=== PATIENT | male | born 1980 | race Two or more races ===

== ENCOUNTER → 2020-05-27 14:13 | Outpatient (BNVA) | payer OTHER, SELFPAY | PROVIDERS: Visit Provider Internal Medicine | DX: S29.011A Strain of muscle and tendon of front wall of thorax, initial encounter (principal); W18.30XA Fall on same level, unspecified, initial encounter | CPT/HCPCS: 71101; 99203 ==

== ENCOUNTER → 2020-05-31 13:58 | Outpatient (BNVA) | payer OTHER, SELFPAY | PROVIDERS: Visit Provider Internal Medicine | DX: R93.7 Abnormal findings on diagnostic imaging of other parts of musculoskeletal system (principal); M24.812 Other specific joint derangements of left shoulder, not elsewhere classified; S20.212A Contusion of left front wall of thorax, initial encounter; W18.30XA Fall on same level, unspecified, initial encounter | CPT/HCPCS: 73030; 99214 ==

== ENCOUNTER → 2020-06-06 13:47 | Outpatient (BNVA) | payer OTHER, SELFPAY | PROVIDERS: PCP Internal Medicine; Visit Provider Internal Medicine | DX: S20.219D Contusion of unspecified front wall of thorax, subsequent encounter (principal); X58.XXXD Exposure to other specified factors, subsequent encounter; M24.812 Other specific joint derangements of left shoulder, not elsewhere classified | CPT/HCPCS: 99213 ==

== ENCOUNTER → 2020-06-13 11:01 | Outpatient (BNVA) | payer OTHER, SELFPAY | PROVIDERS: PCP Internal Medicine; Visit Provider Internal Medicine | DX: S20.212D Contusion of left front wall of thorax, subsequent encounter (principal); X58.XXXD Exposure to other specified factors, subsequent encounter; M24.812 Other specific joint derangements of left shoulder, not elsewhere classified | CPT/HCPCS: 99213 ==

== ENCOUNTER 2020-06-14 15:08 | Outpatient (REF) | payer OTHER, SELFPAY ==
[2020-06-14 16:03] LABS: Hematocrit 48.7 % (42-52); Hemoglobin 15.9 g/dl (14.0-18.0); Mean Corpuscular HGB Conc 32.6 g/dl (31.0-36.0); Mean Corpuscular Hemoglobin 30.7 pg (27.0-33.0); Mean Platelet Volume 9.5 fL (9.4-12.4); Platelet Count 293 X10*3/uL (160-400); Red Blood Count 5.18 X10*6/uL (4.60-5.80); Red Cell Distribution Width 12.6 % (11.0-16.0); White Blood Count 9.6 X10*3/uL (4.8-10.8)
[2020-06-14 16:19] LABS: Anion Gap 10 (12-20); Bilirubin Direct 0.2 mg/dL (0.0-0.5); Bilirubin Total 0.4 mg/dL (0.0-1.0); Blood Urea Nitrogen 14 mg/dL (9-16); Calcium 9.7 mg/dL (8.4-10.2); Carbon Dioxide 28 mmol/L (22-29); Chloride 108 mmol/L (96-108); Estimated Glomerular Filt Rate > 60; Glucose Random 97 mg/dL (60-115); Potassium 4.3 mmol/L (3.3-5.1); Sodium 142 mmol/L (135-145)
[2020-06-14 16:20] LABS: Alanine Aminotransferase 28 U/L (0-40); Albumin Level 4.6 g/dL (3.5-5.0); Alkaline Phosphatase 80 U/L (39-117); Aspartate Amino Transferase 23 U/L (5-37); C Reactive Protein 0.23 mg/dL (< or = 0.50); Cholesterol 173 mg/dL; HDL Cholesterol 33 mg/dL; LDL Cholesterol Calculated 103 mg/dl; Total Protein 7.2 g/dL (6.5-8.0); Triglycerides 185 mg/dL
[2020-06-14 16:41] LABS: Thyroid Stimulating Hormone 1.15 uIU/mL (0.32-4.0)
[2020-06-14 16:53] LABS: Folate 8.6 ng/mL (> or = 4.0); Vitamin B12 510 pg/mL (200-900)
[2020-06-14 16:54] LABS: Erythrocyte Sedimentation Rate 1 MM/HR (0-15)
[2020-06-19 11:21] LABS: Vitamin D 25-OH, D2 <4 ng/mL; Vitamin D 25-OH, D3 11 ng/mL; Vitamin D 25-OH, Total 11 ng/mL (30-100)
== END 2020-06-14 15:09 | disposition home or self-care (01) ==
LOC: HO.LAB 15:08
PROVIDERS: PCP Internal Medicine; Visit Provider Internal Medicine
DX: M89.9 Disorder of bone, unspecified (principal)
CPT/HCPCS: 36415; 80048; 80061; 80076; 82306; 82607; 82746; 84443; 85027; 85652; 86140

== ENCOUNTER → 2020-06-17 12:57 | Outpatient (BNVA) | payer OTHER, SELFPAY | PROVIDERS: PCP Internal Medicine; Visit Provider Internal Medicine | DX: S46.912D Strain of unspecified muscle, fascia and tendon at shoulder and upper arm level, left arm, subsequent encounter (principal); W18.30XD Fall on same level, unspecified, subsequent encounter; R07.89 Other chest pain | CPT/HCPCS: 99213 ==

== ENCOUNTER 2020-06-23 12:00 | Outpatient (RCR) | payer OTHER, SELFPAY ==
--- NOTE | 2020-06-14 15:27 | MHC.PT.EP ---
[facility] [place] [facility] [place] [facility] [place] [facility] [address] Brittanie Gilmore [address] [phone] F: [phone] F: [phone] F: [phone] F: [phone] Physical Therapy Plan of Care Date of Evaluation: 06/14/20 Date of Surgery: N/A Diagnosis: L Shoulder Strain Assessment: Mark is a 39-year-old male presenting to physical therapy with left shoulder pain following a fall at work on 05/27/20. He presents with decreased BL shoulder strength, impaired posture, and tenderness to palpation in his L UT and L anterior scalene musculature. He would benefit from skilled physical therapy to address the aforementioned impairments and increase his tolerance to overhead reaching activities and lifting and carrying items as needed for work duties and performance of heavy ADLs. Mark is motivated to participate in therapy in order to return to work and regain his PLOF. Frequency and Duration: The patient will be seen 2 visits per week for 4 weeks Short Term Goals: -Pt will independently check and correct seated posture every 30 minutes at home within 2 weeks. -Pt will reports <2/10 pain at rest within 2 weeks. 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 -Pt will be independent with HEP for symptom management and maintenance following discharge within 4 weeks. Treatment Plan: Modalities to reduce pain, spasms and effusion. Manual therapy to restore motion and function. Therapeutic exercise to improve strength and flexibility. Neuromuscular re-education for posture and balance. Therapeutic activities to return to functional activities of daily living. Electronically signed by: Angle Licona, PT, DPT Please sign and return to therapist. Thank you for your referral.
--- NOTE | 2020-07-04 14:59 | MHC.PT.DC ---
[facility] [place] [facility] [place] [facility] [place] Office [address] Brittanie Gilmore [address] [phone] F: [phone] F: [phone] F: [phone] F: [phone] Physical Therapy Discharge Report Diagnosis: L Shoulder Strain Date of Surgery: N/A Date of Evaluation: 06/14/20 Date of Discharge: 07/04/20 Treatments to Date: 4 Cancellations to Date: 0 No Shows to Date: 0 Discharge Status: Patient Elected to Stop Discharge Summary: Pt d/c himself from therapy. He states that his rib pain increases significantly every time he does exercise for his ribs. Pt also stated that he discussed this with WC and they were in agreement with his plan. Pt therefore d/c from therapy. Electronically signed by: Angle Licona DPT Please sign and return to therapist. Thank you for your referral.
== END 2020-07-04 15:00 | disposition other institution (70) ==
LOC: HO.PT 12:00
PROVIDERS: Visit Provider Internal Medicine
DX: S43.402A Unspecified sprain of left shoulder joint, initial encounter (principal)
CPT/HCPCS: 97110; 97112; 97140; 97161; 97530

== ENCOUNTER → 2020-06-23 13:25 | Outpatient (BNVA) | payer OTHER, SELFPAY | PROVIDERS: PCP Internal Medicine; Visit Provider Internal Medicine | DX: M25.512 Pain in left shoulder (principal); R07.81 Pleurodynia; Z91.81 History of falling | CPT/HCPCS: 99213 ==

== ENCOUNTER → 2020-06-30 11:40 | Outpatient (BNVA) | payer OTHER, SELFPAY | PROVIDERS: PCP Internal Medicine; Visit Provider Internal Medicine | DX: M25.512 Pain in left shoulder (principal); R07.81 Pleurodynia | CPT/HCPCS: 99213 ==

== ENCOUNTER 2020-07-18 13:51 | Outpatient (REF) | payer OTHER, SELFPAY ==
--- NOTE | ~2020-07-18 | CT_ITS ---
EXAMINATION: CT CHEST WITHOUT CONTRAST CLINICAL INFORMATION: Trauma. Left-sided chest wall and shoulder pain. COMPARISON: Previous left rib and left shoulder x-ray May 2020 TECHNIQUE: Multidetector volumetric CT imaging of the chest was done. Axial MIP volume rendering provided. Sagittal and coronal reformatted images were obtained. This CT examination was performed using dose optimization techniques as appropriate, variously including the following: *Automated exposure control *Adjustment of mA and/or kV according to patient size (this includes techniques or standardized protocols for targeted exams where dose is matched to indication/reason for exam; i.e. extremities or head) *Use of iterative reconstruction technique DLP: 249 mGy-cm FINDINGS: LUNGS: There is evidence of mild paraseptal emphysema. There are small bilateral pulmonary nodules. Largest pulmonary nodules measure 3 mm. There is mild focal bronchiectasis and bronchial wall thickening in the right upper lobe example axial image 122 series 5. No endobronchial or endotracheal lesion is seen. MEDIASTINUM: There are small mediastinal lymph nodes. There are no enlarged lymph nodes. Mediastinum is otherwise normal. PLEURA: There is no pleural effusion. No pleural mass or thickening. No pneumothorax. AXILLA: No lymphadenopathy. UPPER ABDOMEN: Unremarkable. OSSEOUS STRUCTURES: Unremarkable. No fracture seen. CT/CT chest wo con IMPRESSION: Mild paraseptal emphysema. Small bilateral pulmonary nodules, largest measuring 3 mm. Mild focal right upper lobe bronchiectasis and bronchial wall thickening. According to the UPDATED 2017 Fleischner Society recommendations, the advised follow-up imaging for less than 6 mm pulmonary nodule: Low risk, no chest CT follow-up and high risk, optional chest CT follow-up in one year.
== END 2020-07-18 13:52 | disposition home or self-care (01) ==
LOC: HO.CT 13:51
PROVIDERS: Visit Provider Internal Medicine
DX: M89.9 Disorder of bone, unspecified (principal)
CPT/HCPCS: 71250